=== PATIENT | female | born 1960 | race Caucasian/White ===

== ENCOUNTER 2016-10-06 16:11 | Emergency (ER) | payer BC ==
--- NOTE | 2016-10-16 08:39 | ER ---
ADMIT: 10/06/2016 RM/LOC: ER [facility] MR#: [id number] [id number] FREDY SANABRIA I [address] [place] [address] Emergency Room Report SEX: F AGE: 56 : 1960 DATE: 10/06/2016 HISTORY OF PRESENT ILLNESS: A 56-year-old female who comes to the Emergency Department with 7 days' worth of left lower quadrant pain. See T-sheet for history and physical. CBC was within normal limits. Electrolytes; potassium 3.6, glucose 180. A CT scan of her abdomen revealed diverticulitis. The patient has not been vomiting, has no fever, normal white count. We will treat her as an outpatient with Jas and Cedrick and ask her to follow up with her doctor yet this week. DIAGNOSIS: Diverticulitis. Brian Dorsey MD/ addie JOB #: [id number] CC: Asael Thompson MD, Attending Physician Liane Richmond MD, Family Physician
== END 2016-10-06 19:45 | disposition home or self-care (01) ==
LOC: ER 16:11
DX: K57.92 Diverticulitis of intestine, part unspecified, without perforation or abscess without bleeding (principal); E11.9 Type 2 diabetes mellitus without complications; I10 Essential (primary) hypertension

== ENCOUNTER → 2016-10-11 | Outpatient (CLI) | payer BC | END | disposition home or self-care (01) | LOC: RAD.S 10-05 08:30 | DX: M54.2 Cervicalgia (principal); M47.12 Other spondylosis with myelopathy, cervical region; M48.02 Spinal stenosis, cervical region ==